=== PATIENT | female | born 1960 | race Caucasian/White ===

== ENCOUNTER → 2020-12-15 10:49 | Outpatient (CLI) | payer OTHER, SELFPAY ==
--- NOTE | 2020-12-16 09:33 | PFT ---
INTRODUCTION: The patient is a 60-year-old female that presents for pulmonary function studies secondary to a diagnosis of sarcoidosis. Respiratory therapy reports good patient effort. Bronchodilators were used during testing. INTERPRETATION: Forced expiration spirometry demonstrates no evidence of a large airways obstructive ventilatory defect. There was no significant response to aerosolized bronchodilators. Spirograms are of good quality and plateau normally. Body plethysmography was performed and reveals a decreased TLC to 4.96 L, 81% of predicted, indicative of a mild restrictive ventilatory impairment. Diffusing capacity by single breath CO was mildly reduced at 70% of predicted. IMPRESSION: Mild restrictive ventilatory impairment with symmetric reduction in diffusing capacity.
== END ==
PROVIDERS: PCP Family Medicine; Referring Provider Internal Medicine Critical Care Medicine; Visit Provider Internal Medicine Critical Care Medicine
DX: D86.2 Sarcoidosis of lung with sarcoidosis of lymph nodes (principal); R06.00 Dyspnea, unspecified
CPT/HCPCS: 94060; 94726; 94729

== ENCOUNTER → 2022-02-26 | Outpatient (CLI) | payer OTHER, SELFPAY ==
--- NOTE | 2022-03-01 09:10 | PFT ---
INTRODUCTION: The patient is a 61-year-old female that presents for pulmonary function studies secondary to a diagnosis of sarcoidosis. Respiratory therapy reported good patient effort. Bronchodilators were used during testing. INTERPRETATION: Forced expiration spirometry demonstrates no evidence of a large airways obstructive ventilatory defect. There was no significant response to aerosolized bronchodilators. Spirograms are of good quality and plateau normally. Body plethysmography was performed and revealed a decreased TLC to 5.03 L, 83% of predicted, indicative of a mild restrictive ventilatory impairment. Diffusing capacity by single breath CO is reduced at 72% of predicted. IMPRESSION: Mild restrictive ventilatory impairment with symmetric reduction in diffusing capacity.
== END | disposition home or self-care (01) ==
PROVIDERS: PCP Family Medicine; Referring Provider Internal Medicine Critical Care Medicine; Visit Provider Internal Medicine Critical Care Medicine
DX: D86.2 Sarcoidosis of lung with sarcoidosis of lymph nodes (principal)
CPT/HCPCS: 94060; 94726; 94729

== ENCOUNTER → 2022-05-21 | Outpatient (CLI) | payer OTHER, SELFPAY ==
--- NOTE | 2022-05-21 06:43 | ECHOD_ITS ---
Reason For Study: Chest Pain Procedure This was a 2D Doppler, Color Flow transthoracic echocardiogram. The exam was of adequate technical quality. Exam performed in department. Left Ventricle Normal left ventricle. Mild concentric left ventricular hypertrophy. Left ventricular systolic function is normal. The estimated ejection fraction is 65 %. Diastolic function is indeterminate. Right Ventricle Normal right ventricle. Normal systolic function. Atria Normal left atrium. Normal right atrium. No doppler evidence for ASD. Mitral Valve There is no mitral annular calcification. The mitral valve is structurally normal. No prolapse or stenosis seen. Trivial mitral valve insufficiency. Tricuspid Valve Normal tricuspid valve. Trivial tricuspid valve insufficiency. Right ventricular systolic pressure estimated to be 21 mmHg. Aortic Valve Normal aortic valve. Trisinus/trileaflet aortic valve. Mild (1+) aortic valve insufficiency. Pulmonic Valve The pulmonic valve is not well visualized. Great Vessels Normal aortic root. Pericardium/Pleural Epicardial fat. No pericardial effusion. MMode/2D Measurements & Calculations LVIDd: 4.8 cm IVSd: 1.5 cm Ao root diam: 3.8 cm LVIDs: 3.0 cm LVPWd: 1.3 cm RVDd: 3.1 cm FS: 36.8 % LAV(MOD-bp): 25.5 ml LVAd ap4: 23.2 cm2 SV(MOD-sp4): 42.1 ml LAV(MOD-bp) Indexed: 11.0 ml/m2 LVLd ap4: 6.9 cm LAV(MOD-sp2): 36.1 ml EDV(MOD-sp4): 68.9 ml LAV(MOD-sp4): 17.3 ml EDV(sp4-el): 66.6 ml LVAs ap4: 13.2 cm2 LVLs ap4: 5.8 cm ESV(MOD-sp4): 26.8 ml ESV(sp4-el): 25.4 ml EF(MOD-sp4): 61.2 % EF(sp4-el): 61.8 % SV(sp4-el): 41.2 ml LA A4 area: 9.1 cm2 LA dimension(2D): 3.1 cm RA A4 area: 10.3 cm2 Doppler Measurements & Calculations MV E max brandt: 57.1 cm/sec Lat Peak E' Brandt: 5.5 cm/sec Med Peak E' Brandt: 3.9 cm/sec MV A max brandt: 75.7 cm/sec E/E' lat: 10.4 E/E' med: 14.7 MV E/A: 0.75 Ao V2 max: 150.9 cm/sec LV V1 max: 114.7 cm/sec PA V2 max: 84.2 cm/sec Ao max P.1 mmHg LV V1 max P.3 mmHg Ao V2 mean: 102.4 cm/sec Ao mean P.7 mmHg Ao V2 VTI: 25.6 cm TR max brandt: 212.1 cm/sec TR max P.0 mmHg ECHO/Echo Complete Interpretation Summary Left ventricular systolic function is normal. The estimated ejection fraction is 65 %. Mild concentric left ventricular hypertrophy. Trivial mitral valve insufficiency. Trivial tricuspid valve insufficiency. Mild (1+) aortic valve insufficiency. Epicardial fat. Right ventricular systolic pressure estimated to be 21 mmHg. Diastolic function is indeterminate. Ordering Physician: Micah Pro Referring Physician: Abbi Zhou Performed By: Key Burgess, SONALI, RVT
--- NOTE | 2022-05-21 10:06 | STRESSREP ---
Stress Test Report Date: 05-21-2022 Procedure: Exercise tolerance test/imaging study Indications: Chest pain; sarcoidosis Consent: Per the patient Procedure: The patient exercised on a Jimmy protocol for 3 minutes completing Stage I achieving a peak heart rate of 146 bpm (91% predicted maximal heart rate) with a peak blood pressure 170/80 mmHg and a peak MET capacity of 4 METs. The baseline ECG demonstrated sinus rhythm; nonspecific ST/T wave abnormality. The peak exercise ECG demonstrated no obvious ECG changes. There were no cardiac dysrhythmias pretest, during exercise, or recovery. The functional capacity was considered decreased. There was no complaint of chest discomfort during exercise or recovery. The examination was discontinued secondary to dyspnea. Impression: 1. Technically adequate (percent predicted maximal heart rate greater than 85%) exercise tolerance test 2. Peak exercise ECG with no obvious ECG changes 3. There were no cardiac dysrhythmias pretest, during exercise, or recovery 4. Nuclear images pending Myocardial perfusion imaging study: Technique: The patient was injected with 14.5 mCi of technetium 99m Cardiolite and subsequently rest SPECT Cardiolite nuclear imaging was obtained in the horizontal long, vertical long, and short axis views. The patient exercised on a Jimmy protocol for 3 minutes completing Stage I achieving a peak heart rate of 146 bpm (91% predicted maximal heart rate) with a peak blood pressure 170/80 mmHg and a peak MET capacity of 4 METs. The patient was injected with 44.3 mCi of technetium 99m Cardiolite and subsequently stress SPECT Cardiolite nuclear imaging was obtained in the horizontal long, vertical long, and short axis views. A gated Cardiolite study at peak stress was obtained. Interpretation: Rest and stress SPECT Cardiolite nuclear imaging status post realignment, normalization, and attenuation correction, demonstrates the appearance of relative uniform tracer uptake and myocardial perfusion appearing within normal limits. There is end systolic thickening and brightening. The gated Cardiolite study demonstrates myocardial thickening and inward wall motion. The reported LVEF is 74%. Impression: 1. Rest and stress SPECT Cardiolite nuclear imaging demonstrate relative uniform tracer uptake and myocardial perfusion appearing within normal limits. 2. The gated Cardiolite study reports an LVEF of 74%. This note was generated with [employer]ation software. It may contain incorrect words, spelling, and punctuation that were not noted in checking the note before signing.
== END | disposition home or self-care (01) ==
PROVIDERS: PCP Family Medicine; Referring Provider Internal Medicine Cardiovascular Disease; Visit Provider Internal Medicine Cardiovascular Disease
DX: R07.9 Chest pain, unspecified (principal); E78.1 Pure hyperglyceridemia; I10 Essential (primary) hypertension
CPT/HCPCS: 78452; 93017; 93306; A9500; A4216

== ENCOUNTER 2024-05-12 02:50 | Observation (INO) | payer OTHER, SELFPAY ==
[2024-05-12 02:32] VITALS: BMI 36.3
[2024-05-12 02:35] VITALS: BP 112/83; PULSE 71; RESP 16; TEMP 36.8; O2SAT 97
--- NOTE | 2024-05-12 02:42 | HP.PCM.HOS_ITS ---
[facility] - General General Date of Admission: 05/12/24 Date of Service: 05/12/24 Chief Complaint: Chest pain with abnormal EKG. HPI Narrative SANDIE GUZMAN, is a 63 F with a past medical history of essential hypertension, hyperlipidemia, obesity; with a BMI of 36.3 this admission, prediabetes, history of Sarcoidosis of lung; with mild restrictive ventilatory defect and symmetric reduction in diffusing capacity (2021), history of renal calculi, history of diverticulitis, PTSD, depression, history of anaphylactic reaction of Flonase and history of abnormal EKG with T-wave inversions followed by an echocardiogram that revealed LVEF ~60% with mild concentric LVH and normal treadmill stress test (2021) who was transferred from a freestanding ER in [place], [place] to [facility] via direct transfer for continued workup of chest pain with abnormal EKG noted at their facility. Ms. Guzman reports her symptoms began approximately two days prior to admission after she was recently started on both Atorvastatin and Lisinopril with patient then developing severe joint pain - particularly in her Left TMJ that was unbearable. She then stopped her statin agent with subsequent improvement. Then she took her Metoprolol by itself and subsequently developed severe chest pain that was substernal, pressure-like, ~8-9/10 and radiating into her epigastrium and neck with nothing seeming to make the pain better (including Tums) or worse so she decided to go to the ER in [place] where she had two negative troponins but with a an abnormal EKG suggestive of anterolateral ischemia that was diverse from her previous T-wave inversions with T wave inversion in lateral leads V3 to V6 and flipped T waves in inferior leads II, III and aVF causing her to be transferred her for stress testing to confirm suspicion of underlying ischemia. She admits to increased life stress due to family issues - particularly with her sister since the of their mother 2 years ago. She denies other recent illness, fever, chills, nausea, vomiting, diaphoresis or SOB but she does admit to cutting out sodas and other sweetened drinks for the past week with a subsequent welcomed ~6# weight loss. She also underwent a CT scan of the abdomen pelvis at the [place] ER that revealed no acute abnormality in the abdomen and pelvis and re-demonstrated a complex ~2.4 cm Right renal cystic lesion with nonemergent MRI recommended for further evaluation. She was then admitted to the PCU under observation status for a stay that is expected to be less than 2 midnights. [facility] Medical History Diabetes Chest pain Essential hypertension Screening for breast cancer Sarcoidosis of lung with sarcoidosis of lymph nodes Pulmonary nodules PTSD (post-traumatic stress disorder) Prediabetes Obesity Hypertension Essential hypertriglyceridemia Diverticulitis Depression Kidney stone Home Medications ?Medication ?Instructions ?Recorded ?Last Taken ?Type multivitamin 1 tab PO DAILY 04/06/22 Unknown History atorvastatin 20 mg tablet 20 mg PO DAILY 05/12/24 05/05/24 History cholecalciferol (vitamin D3) 25 25 mcg PO DAILY supplement 05/12/24 Unknown History mcg (1,000 unit) capsule (Vitamin D3) lisinopril 10 mg tablet 10 mg PO DAILY BP 05/12/24 05/11/24 History Allergy/AdvReac Type Severity Reaction Status Date / Time prednisone AdvReac Severe Other Verified 06/18/22 13:36 morphine AdvReac Unknown Upset Verified 06/18/22 13:36 Stomach hydrocodone bitartrate (From AdvReac Upset Verified 06/18/22 13:36 [place]) Stomach Family History Mother Heart disease Thyroid disorder Hyperlipidemia Mitral valve disorder Atrial fibrillation Grandmother Diabetes Rheumatoid arthritis Father COPD (chronic obstructive pulmonary disease) GERD (gastroesophageal reflux disease) Dementia Surgical History History of tonsillectomy History of tubal ligation History of lithotripsy History of hysterectomy History of colonoscopy History of cholecystectomy History of delivery History of carpal tunnel surgery Social History Smoking Status: Never smoker alcohol intake: never substance use type: does not use caffeine: Yes (occasional) Type: carbonated beverages ROS ROS Narrative Review of systems: General: Patient denies fever or chills ENT: Patient admits to pain in the left jaw after atorvastatin but she denies headache, denies stuffy nose, denies sore throat EYES: Denies changes in vision or discharge from eyes. Resp: Denies cough, denies shortness of breath Cardiac: Patient admits to severe chest pain as per HPI but she denies palpitations or heart racing. GI: Denies abdominal pain, denies changes in bowel, denies nausea or vomiting. : Denies changes in urination Extremity: Denies swelling Musculoskeletal: Patient denies arthralgias or myalgias. Neuro: Patient denies headache, paresthesias or focal neurologic deficits. Heme: Denies any bleeding or bruising Skin: Denies rashes Psychiatric: No complaints voiced related to uncontrolled depression or anxiety. Endocrine: No polyuria, polydipsia or polyphagia. The rest of the 14 point ROS was negative except for positives in HPI. Vital Signs Vital Signs Vital Signs: Weight Weight: 253 lb 4.978 oz Body Mass Index (BMI) 36.3 Physical Exam Const alert, oriented x3, no apparent distress and healthy appearing General Appearance: cooperative HEENT normocephalic, head/scalp atraumatic, hearing grossly normal bilaterally and moist oral mucous membranes Eyes PERRL and EOMs intact bilaterally Neck no lymphadenopathy and supple Resp normal respiratory effort, no retractions, no use of accessory muscles and clear to auscultation bilaterally Cardio regular rate and regular rhythm GI normal to inspection, nondistended, normoactive bowel sounds, soft to palpation, non-tender and non-distended GI Narrative: Obese. Extremity normal to inspection, full ROM and no clubbing, cyanosis or edema Skin Skin Narrative: Patient has no evidence of rash, abscess or jaundice. Neuro oriented x3, CN's II-XII intact bilaterally, moves all extremities and no focal motor deficits Sensorium / Orientation: awake, alert, oriented to person, oriented to place and oriented to time Speech: speech normal Motor Exam: strength 5/5 throughout Psych affect normal Results Medical Records Data Attestation: I reviewed the patient's medical records Lab / Micro Data Attestation: I reviewed the patient's lab results. 05/12/24 03:45 05/12/24 03:45 Assessment & Plan Assessment/Plan (1) Chest pain: QUALIFIERS: Chest pain type: unspecified Qualified Code(s): R07.9 - Chest pain, unspecified (2) Adverse reaction to drug: QUALIFIERS: Encounter type: initial encounter Qualified Code(s): T50.905A - Adverse effect of unspecified drugs, medicaments and biological substances, initial encounter (3) Essential hypertension: (4) Complex renal cyst: (5) Sarcoidosis of lung with sarcoidosis of lymph nodes: (6) Prediabetes: (7) PTSD (post-traumatic stress disorder): (8) Pulmonary nodules: PLAN: Plan 1. Chest pain with abnormal EKG in the setting of known previous T-wave abnormalities - Admit to PCU under observation status. Serialize troponin. Check echocardiogram to evaluate LVEF. Check treadmill stress test to confirm suspicion of ischemia suggested on EKG. 2. Adverse drug reaction to metoprolol use to treat relatively mild hypertension causing severe pressure sensation in chest shortly after ingesting for the second time causing #1 - Avoid this agent and monitor blood pressure. If necessary consider starting an alternative agent. 3. Hyperlipidemia; with intolerance to statin causing severe joint pain particularly in Left TMJ complicating #1 & #2 - Avoid statins. 4. Obesity; with a BMI of 36.3 this admission compounding #1 - #3 - Weight loss will be recommended. This complicates her case and may adversely effect her recovery. 5. CT scan of the abdomen pelvis at the [place] ER that revealed no acute abnormality in the abdomen and pelvis and re-demonstrated a complex ~2.4 cm Right renal cystic lesion with nonemergent MRI recommended for further evaluation adding to the complexity of #1 - #4 - Check MRI as recommended by radiologist. 6. History of Sarcoidosis of lung; with mild restrictive ventilatory defect and symmetric reduction in diffusing capacity (2021) - Stable with no signs of acute pulmonary issues. 6. Prediabetes - Check HgbA1c to objectively assess the quality of diabetic control with patient having cut out sweet drinks with ~6 pound weight loss. 7. History of renal calculi - Noted. 8. History of diverticulitis - Stable. 9. PTSD and depression - Stable in spite of increased family stress with patient currently not on any psychotropic agents. 10. DVT prophylaxis - Lovenox 40 mg sq daily. Total time: Approximately 70 minutes. Charges/Coding Visit Charges OBSV E&M: 16038 Observ/hosp same date L2
--- NOTE | 2024-05-12 03:07 | ECHOD_ITS ---
Reason For Study: Chest Pain Procedure This was a 2D Doppler, Color Flow transthoracic echocardiogram. Exam performed portable in patient room. Left Ventricle Normal LV size. The estimated ejection fraction is 65 %. No evidence for diastolic dysfunction. No regional wall motion abnormalities noted. Right Ventricle Normal RV size. Normal systolic function. Atria The left and right atria are normal. No doppler evidence for ASD. Mitral Valve There is no mitral valve stenosis. No mitral valve insufficiency. Tricuspid Valve There is no tricuspid stenosis. Unable to estimate RV systolic pressure due to inadequate jet, pulmonary artery pressure probably normal. Aortic Valve Trisinus/trileaflet aortic valve. There is no aortic stenosis. Mild (1+) aortic valve insufficiency. Pulmonic Valve There is no pulmonic valvular stenosis. No pulmonic valve insufficiency. Great Vessels Normal aortic root. Pericardium/Pleural No pericardial effusion. MMode/2D Measurements & Calculations LVIDd: 4.3 cm IVSd: 1.4 cm Ao root diam: 3.8 cm LVIDs: 2.6 cm LVPWd: 1.4 cm RVDd: 3.1 cm FS: 40.1 % LAV(MOD-bp): 21.4 ml LVAd ap4: 19.8 cm2 SV(MOD-sp4): 37.1 ml LAV(MOD-bp) Indexed: 9.3 ml/m2 LVLd ap4: 6.3 cm LAV(MOD-sp2): 28.3 ml EDV(MOD-sp4): 54.8 ml LAV(MOD-sp4): 15.9 ml EDV(sp4-el): 52.5 ml LVAs ap4: 10.0 cm2 LVLs ap4: 5.3 cm ESV(MOD-sp4): 17.7 ml ESV(sp4-el): 16.0 ml EF(MOD-sp4): 67.8 % EF(sp4-el): 69.5 % SV(sp4-el): 36.5 ml LA A4 area: 9.2 cm2 LA dimension(2D): 2.8 cm RA A4 area: 12.8 cm2 TAPSE: 2.1 cm Time Measurements MV dec time: 0.24 sec Doppler Measurements & Calculations MV E max brandt: 48.1 cm/sec Lat Peak E' Brandt: 6.5 cm/sec Med Peak E' Brandt: 4.2 cm/sec MV A max brandt: 74.9 cm/sec E/E' lat: 7.4 E/E' med: 11.4 MV E/A: 0.64 Ao V2 max: 156.0 cm/sec LV V1 max: 125.7 cm/sec MV dec slope: 200.8 cm/sec2 Ao max P.7 mmHg LV V1 max P.3 mmHg Ao V2 mean: 108.6 cm/sec Ao mean P.2 mmHg Ao V2 VTI: 26.5 cm PA V2 max: 91.3 cm/sec ECHO/Echo Complete Interpretation Summary The estimated ejection fraction is 65 %. No evidence for diastolic dysfunction. Mild (1+) aortic valve insufficiency. Ordering Physician: Adams Pal Referring Physician: Abbi Zhou Performed By: Key Burgess, SONALI, RVT
--- NOTE | 2024-05-12 03:36 | EKG12_ITS ---
Test Reason : CP ADMIT Blood Pressure : / mmHG Vent. Rate : 067 BPM Atrial Rate : 067 BPM P-R Int : 172 ms QRS Dur : 088 ms QT Int : 424 ms P-R-T Axes : 046 051 -07 degrees QTc Int : 448 ms Normal sinus rhythm ST & T wave abnormality, consider anterolateral ischemia Abnormal ECG No previous ECGs available Confirmed by GIOVANNI SALAZAR, HEMALATHA ([id number]), purchase request editor REGINA KIM ([id number]) on 05/18/2024 9:56:58 AM Referred By: DR Mayer Confirmed By:MARTA DAVILA MD
[2024-05-12 04:15] LABS: Troponin-I HS < 3 pg/mL (3.0-54.0)
[2024-05-12 04:22] LABS: Phosphorus 3.4 mg/dL (2.5-4.9)
[2024-05-12 04:36] LABS: Absolute Lymphocyte Count 1.85 X10^3/uL (0.83-4.51); Absolute Neutrophil Count 5.5 X10^3/uL (2.0-7.7); Basophil# 0.05 X10^3/uL; Basophil% 0.6 % (0-1); Eosinophil# 0.11 X10^3/uL; Eosinophils% 1.3 % (0-5); Hematocrit 43.1 % (37-47); Lymphocyte # 1.85 X10^3/ul (0.83-4.51); Lymphocyte % 22.3 % (19-41); Magnesium 2.2 mg/dL (1.6-2.6); Mean Corp Hgb Conc 32.5 g/dL (32-36); Mean Corpuscular Hgb 27.8 pg (27.0-32.0); Mean Corpuscular Volume 85.7 fL (81-99); Mean Platelet Vol. 10.3 fl (6.2-12.0); Monocyte# 0.76 X10^3/uL; Monocyte% 9.2 % (0-10); NRBC Flagged by Analyzer 0 % (0-5); Neutrophil % 66.4 % (47-70); Platelet Count 209 K/mm3 (150-450); RBC Distribution Width CV 14.7 % (11.6-14.6); RBC Distribution Width SD 45.2 fl (35.1-43.9); Red Blood Count 5.03 M/mm3 (4.2-5.4); White Blood Count 8.3 K/mm3 (4.4-11.0)
[2024-05-12 04:46] LABS: D-Dimer Quantitative (DVT/PE) < 0.27 FEU/ug/m (0.27-0.49)
[2024-05-12 06:16] VITALS: BP 108/70; PULSE 65; RESP 16; TEMP 36.7; O2SAT 96
[2024-05-12] MEDS: Aspirin E.C. 81 MG Tablet PO (06:19)
[2024-05-12 06:32] LABS: ALB/GLOB Ratio 1.2 RATIO (0.9-2.4); AST(SGOT) 23 U/L (15-37); Alanine Aminotransfer ALT/SGPT 31 U/L (13-56); Albumin, Serum 3.4 g/dL (3.2-5.0); Alkaline Phosphatase 95 U/L (45-117); Anion Gap 5 (5-15); BUN 21 mg/dL (7-18); BUN/Creat Ratio 17.6 RATIO (10-20); Chloride 109 mmol/L (98-107); Cholesterol 103 mg/dL (200); Creatinine, Serum 1.19 mg/dL (0.55-1.02); EST Glomerular Filtration Rate 49 mL/min (>60); Est Glom Filt Rate - Afr Amer 59 mL/min (>60); Globulin 2.9 g/dL (2.2-4.2); Glucose 115 mg/dL (74-106); High Density Lipoprotein 33 mg/dL; Potassium 4.3 mmol/L (3.5-5.1); Protein, Total 6.3 g/dL (6.4-8.2); Sodium Level 139 mmol/L (136-145); Triglycerides 162 mg/dL; Troponin-I HS 4 pg/mL (3.0-54.0); Very Low Density Lipoprotein 32 mg/dL (5-40)
[2024-05-12 07:47] LABS: Hemoglobin A1c 5.8 % (3.8-5.6)
--- NOTE | 2024-05-12 08:49 | PN.HOSP_ITS ---
Reason for Visit Reason for Visit: Diagnoses Sarcoidosis of lung with sarcoidosis of lymph nodes (05/12/24) Post-traumatic stress disorder, unspecified (05/12/24) Essential (primary) hypertension (05/12/24) Cyst of kidney, acquired (05/12/24) Chest pain, unspecified (05/12/24) Prediabetes (05/12/24) Other nonspecific abnormal finding of lung field (05/12/24) Adverse effect of unspecified drugs, medicaments and biological substances, initial encounter (05/12/24) Subjective Subjective Had chest pain, myalgias with statin and lisinopril. Also, concerned about Sjogren's Syndrome given chronically dry mouth and eyes. She has required a root canal in the past. Her dentist recommended that she be checked for Sjogren's. When she told her PCP, she said her PCP told her that many people w/o Sjogren's have root canals and was dismissive of her request. Objective Data Objective Data Vital Signs: Vital Signs Temp Pulse Resp BP Pulse Ox O2 Del Method 36.7 C 65 16 108/70 96 Room Air 05/12/24 06:16 05/12/24 06:16 05/12/24 06:16 05/12/24 06:16 05/12/24 06:16 05/12/24 06:16 Oxygen Delivery Method Room Air Weight: 114.9 kg Body Mass Index (BMI) 36.3 Lab / Micro Data 05/12/24 03:45 05/12/24 05:45 Labs: Laboratory Results - last 24 hr 05/12/24 03:45: WBC 8.3, RBC 5.03, Hgb 14.0, Hct 43.1, MCV 85.7, MCH 27.8, MCHC 32.5, RDW Std Deviation 45.2 H, RDW Coeff of Sukumar 14.7 H, Plt Count 209, MPV 10.3, Immature Gran % (Auto) 0.200, Neut % (Auto) 66.4, Lymph % (Auto) 22.3, [place] % (Auto) 9.2, Eos % (Auto) 1.3, Baso % (Auto) 0.6, Absolute Neuts (auto) 5.5, Absolute Lymphs (auto) 1.85, Nucleated RBC % 0, D-Dimer Quant (PE/DVT) < 0.27 L, Hemoglobin A1c 5.8 H, Phosphorus 3.4, Magnesium Cancelled 05/12/24 03:45: Magnesium 2.2, Troponin I High Sens < 3 L 05/12/24 05:45: Sodium 139, Potassium 4.3, Chloride 109 H, Carbon Dioxide 25.0, Anion Gap 5, BUN 21 H, Creatinine 1.19 H, Estim Creat Clear Calc 66.50, Est GFR (MDRD) Af Amer 59 L, Est GFR (MDRD) Non-Af 49 L, BUN/Creatinine Ratio 17.6, G lucose 115 H, Calcium 9.0, Total Bilirubin 1.00, AST 23, ALT 31, Alkaline Phosphatase 95, Troponin I High Sens 4, Total Protein 6.3 L, Albumin 3.4, Globulin 2.9, Albumin/Globulin Ratio 1.2, Triglycerides 162, Cholesterol 103, LDL Cholesterol 38, VLDL Cholesterol 32, HDL Cholesterol 33 L, TSH 1.860 Physical Exam Const alert and no apparent distress HEENT head/scalp atraumatic and moist oral mucous membranes Resp normal respiratory effort and no retractions Cardio regular rate, regular rhythm, S1 normal heart sound and S2 normal heart sound GI normal to inspection, nondistended, normoactive bowel sounds, soft to palpation, non-tender and non-distended Neuro oriented x3, CN's II-XII intact bilaterally and moves all extremities Assessment & Plan Assessment/Plan (1) Chest pain: QUALIFIERS: Chest pain type: unspecified Qualified Code(s): R07.9 - Chest pain, unspecified (2) Adverse reaction to drug: QUALIFIERS: Encounter type: initial encounter Qualified Code(s): T50.905A - Adverse effect of unspecified drugs, medicaments and biological substances, initial encounter (3) Essential hypertension: (4) Complex renal cyst: (5) Sarcoidosis of lung with sarcoidosis of lymph nodes: (6) Prediabetes: (7) PTSD (post-traumatic stress disorder): (8) Pulmonary nodules: PLAN: Plan Chest pain * atypical per patient after taking metoprolol * stress ordered. troponins negative Right renal cyst * noted on outside imaging. * MRI ordered and cancelled by me. CT report showed that complex cyst was redemonstrated. Advised pt to follow up with her PCP about having that further evaluated. Chronic conditions: * HLP: statin intolerance * Obesity class II: complicates care and recovery * Pulmonary sarcoidosis * HTN: per history. reviewed BP readings here and have been WNL. Discussed possibility of White Coat Syndrome. I do not advise antihypertensives at this time. * Dry mouth. Recommend that either she have test through her PCP (though per the pt, her PCP has been reluctant to do so) or be referred to a manager action. VTE prophylaxis: LMWH. Charges/Coding Procedures Hospitalists Procedures: Other Procedure - See Report (Nonbillable rounding as patient was admitted after midnight.)
[2024-05-12 10:50] VITALS: BP 121/77; PULSE 73; RESP 18; TEMP 36.6; O2SAT 97
[2024-05-12] MEDS: Cholecalciferol (VIT D3) 25 MCG TABLET (1,000 UNITS) PO (10:52)
[2024-05-12] MEDS: Multivitamins,Therapeutic Tablet 1 TABLET PO (10:52)
[2024-05-12 11:17] LABS: Troponin-I HS 4 pg/mL (3.0-54.0)
--- NOTE | 2024-05-12 13:09 | STRESSREP_ITS ---
Stress Test Report Date: 05/12/2024 Procedure: Pharmacologic stress nuclear imaging study Indications: Chest pain Consent: Per the patient Procedure: The patient underwent pharmacologic (Regadenoson) evaluation with a peak heart rate of 93 beats per minute (59%predicted maximal heart rate) and a peak blood pressure of 118/80 mmHg. The baseline ECG demonstrated normal sinus rhythm, nonspecific ST-T changes. EKG during lexiscan infusion revealed sinus rhythm with nonspecific ST-T changes. No definite evidence of significant ischemia. EKG post infusion revealed no definite evidence of significant ischemia [There were no cardiac dysrhythmias pretest, during pharmacologic infusion, or recovery]. [There was no complaint of chest discomfort during pharmacologic infusion or recovery]. The examination was discontinued secondary to completion of protocol. Impression: 1. Lexiscan stress test test is negative for Lexiscan infusion induced EKG changes of ischemia. 2. Lexiscan stress test test is negative for Lexiscan infusion induced chest pain. 3. Results of the nuclear portion of the test is as below Myocardial perfusion imaging study: Technique: The patient was injected with 15 millicuries of technetium 99m Cardiolite and subsequently rest SPECT Cardiolite nuclear imaging was obtained in the horizontal long, vertical long, and short axis views. The patient underwent pharmacologic [Regadenoson 0.4mg] evaluation. Please see above for details. The patient was injected with 45 millicuries of technetium 99m Cardiolite and subsequently stress SPECT Cardiolite nuclear imaging was obtained in the horizontal long, vertical long, and short axis views. A gated Cardiolite study at peak stress was obtained. Interpretation: Rest and stress SPECT Cardiolite nuclear imaging status post realignment, normalization, and attenuation correction demonstrate no evidence of significant ischemia or infarction. Gated images reveal no significant regional wall motion abnormalities. The reported LVEF is greater than 70%. Impression: 1. There is no evidence of significant ischemia or infarction. 2. Estimated ejection fraction is greater than 70%. This note was generated with [employer] software. It may contain incorrect words, spelling, and punctuation that were not noted in checking the note before signing.
--- NOTE | 2024-05-12 13:19 | DS.PCM_ITS ---
Providers Date of Admission: 05/12/24 Primary Care Physician: Dr. Abbi Zhou MD Reason For Visit: CHEST PAIN AND ABNORMAL EKG Diagnosis Discharge Diagnosis (1) Chest pain: Status: Acute Code(s): R07.9 - Chest pain, unspecified Qualifiers: Chest pain type: unspecified Qualified Code(s): R07.9 - Chest pain, unspecified (2) Adverse reaction to drug: Status: Acute Code(s): T50.905A - Adverse effect of unspecified drugs, medicaments and biological substances, initial encounter Qualifiers: Encounter type: initial encounter Qualified Code(s): T50.905A - Adverse effect of unspecified drugs, medicaments and biological substances, initial encounter (3) Essential hypertension: Status: Acute Code(s): I10 - Essential (primary) hypertension (4) Complex renal cyst: Status: Acute Code(s): N28.1 - Cyst of kidney, acquired (5) 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 Right renal cyst * noted on outside imaging. * MRI ordered and cancelled by me. CT report showed that complex cyst was redemonstrated. Advised pt to follow up with her PCP about having that further evaluated. Chronic conditions: * HLP: statin intolerance * Obesity class II: complicates care and recovery * Pulmonary sarcoidosis * HTN: per history. reviewed BP readings here and have been WNL. Discussed possibility of White Coat Syndrome. I do not advise antihypertensives at this time. * Dry mouth. Recommend that either she have test through her PCP (though per the pt, her PCP has been reluctant to do so) or be referred to a advertising rep. VTE prophylaxis: LMWH. Medications at Discharge Home Medications multivitamin 1 tab PO DAILY 04/06/22 cholecalciferol (vitamin D3) 25 mcg (1,000 unit) capsule (Vitamin D3) 25 mcg PO DAILY supplement 05/12/24 saliva substitute combo no.9 (Biotene Dry Mouth Oral Rinse mouthwash) 15 ml mucous membrane TID PRN dry mouth #1,000 mL 05/12/24 Weight / BMI Weight Weight: 114.9 kg Body Mass Index (BMI) 36.3 ABG / Lab / Microbiology Data 05/12/24 03:45 05/12/24 05:45 Laboratory: Laboratory Results - last 24 hr 05/12/24 03:45: WBC 8.3, RBC 5.03, Hgb 14.0, Hct 43.1, MCV 85.7, MCH 27.8, MCHC 32.5, RDW Std Deviation 45.2 H, RDW Coeff of Sukumar 14.7 H, Plt Count 209, MPV 10.3, Immature Gran % (Auto) 0.200, Neut % (Auto) 66.4, Lymph % (Auto) 22.3, [place] % (Auto) 9.2, Eos % (Auto) 1.3, Baso % (Auto) 0.6, Absolute Neuts (auto) 5.5, Absolute Lymphs (auto) 1.85, Nucleated RBC % 0, D-Dimer Quant (PE/DVT) < 0.27 L, Hemoglobin A1c 5.8 H, Phosphorus 3.4, Magnesium Cancelled 05/12/24 03:45: Magnesium 2.2, Troponin I High Sens < 3 L 05/12/24 05:45: Sodium 139, Potassium 4.3, Chloride 109 H, Carbon Dioxide 25.0, Anion Gap 5, BUN 21 H, Creatinine 1.19 H, Estim Creat Clear Calc 66.50, Est GFR (MDRD) Af Amer 59 L, Est GFR (MDRD) Non-Af 49 L, BUN/Creatinine Ratio 17.6, G lucose 115 H, Calcium 9.0, Total Bilirubin 1.00, AST 23, ALT 31, Alkaline Phosphatase 95, Troponin I High Sens 4, Total Protein 6.3 L, Albumin 3.4, Globulin 2.9, Albumin/Globulin Ratio 1.2, Triglycerides 162, Cholesterol 103, LDL Cholesterol 38, VLDL Cholesterol 32, HDL Cholesterol 33 L, TSH 1.860 05/12/24 10:40: Troponin I High Sens 4 D/C Instructions Discharge Diet: No restrictions Meaningful Use Info Meaningful Use Meaningful Use Diagnoses (Choose all that apply): None applicable Ischemic Stroke Statin Dosing Therapy Reference: STATIN DOSE THERAPY REFERENCE: * Patients > 75 years receive moderate or high dose statin therapy. * Patients 75 years or YOUNGER should receive HIGH intensity statin dose unless contraindicated. You will be required to document reason for non-treatment if statin daily dose does not meet guidelines. HIGH DOSE STATIN THERAPY DAILY Atorvastatin > than or = to 40 mg Rosuvastatin > than or = to 20 mg Amlodipine + Atorvastatin > than or = to 2.5/40 mg Ezetimibe + Simvastatin 10/80 mg Simvastatin 80mg Discharge Plan Admission Admit Date/Time: 05/12/24 02:50 Primary Reason for Your Visit: Chest pain. Attending Provider: Davide Campbell Primary Care Provider: Abbi Zhou Consulting Providers: Adams Pal Instructions Additional Instructions / Restrictions: For your chest pain, your stress test was normal and your chest pain is not due to any cardiac reason. It is unclear if is related with some your medication or some kind of reflux. No additional workup necessary at this time though if you do have ongoing issues you may need to follow-up with a promotion specialist. If not already, use Biotene ([id number]) for dry mouth. Ask your PCP for referral to rheumatology for evaluation of Sjogren's syndrome. Your blood pressure in the hospital has been fine and no need for blood pressure medications. You can get your own blood pressure machine (aka, sphygmomanometer) and check your blood pressure at home. Discharge Orders/Prescriptions Prescriptions: New Biotene Dry Mouth Oral Rinse Mouthwash 15 ml mucous membrane TID PRN (Reason: dry mouth) Qty: 1000 0RF Rx Instructions: swish for 15-30 secs , then spit out; do not swallow Continued multivitamin Tablet 1 tab PO DAILY cholecalciferol (vitamin D3) [Vitamin D3] 25 mcg (1,000 unit) capsule 25 mcg PO DAILY Discontinued atorvastatin 20 mg tablet 20 mg PO DAILY lisinopril 10 mg tablet 10 mg PO DAILY Referrals / Follow Up: Abbi Zhou MD [Primary Care Provider] - Within 2 Weeks Disposition Disposition (needs filled in before D/C Order can be placed): Home, Self Care Charges/Coding Visit Charges OBSV E&M: [id number] Observ/hosp same date L2
== END 2024-05-12 13:22 | disposition home or self-care (01) ==
PROVIDERS: Admitting Provider Internal Medicine; PCP Family Medicine
DX: R07.89 Other chest pain (principal); E11.9 Type 2 diabetes mellitus without complications; T44.7X5A Adverse effect of beta-adrenoreceptor antagonists, initial encounter; N28.1 Cyst of kidney, acquired; E66.9 Obesity, unspecified; E78.1 Pure hyperglyceridemia; D86.0 Sarcoidosis of lung; I10 Essential (primary) hypertension; M79.10 Myalgia, unspecified site; F43.10 Post-traumatic stress disorder, unspecified; Z68.36 Body mass index [BMI] 36.0-36.9, adult; R94.31 Abnormal electrocardiogram [ECG] [EKG]; Z79.899 Other long term (current) drug therapy; F32.A Depression, unspecified
CPT/HCPCS: 36415; 78452; 80053; 80061; 83036; 83735; 84100; 84443; 84484; 85025; 85379; 93005; 93017; 93306; 99221; A9500; G0378; G0379; J2785